=== PATIENT | female | born 1975 | race Caucasian/White ===

== ENCOUNTER → 2019-04-02 | Outpatient (CLI) | payer OTHER | LOC: RAD 09:01 | PROVIDERS: ATTEND Nurse Practitioner Family | DX: Z12.31 Encounter for screening mammogram for malignant neoplasm of breast (principal) | CPT/HCPCS: 77067 ==

== ENCOUNTER → 2020-04-20 | Outpatient (CLI) | payer OTHER ==
--- NOTE | 2020-04-20 14:36 | Diagnostic Imaging Report ---
INDICATION: Routine screening. COMPARISON: 04/02/2019 and 12/27/2017. TECHNIQUE: 2D and 3D bilateral screening mammography was performed with CAD. FINDINGS: Both breasts are heterogeneously dense, limiting the sensitivity of mammography. No mass or malignant appearing microcalcifications are identified. The axillae are unremarkable. IMPRESSION: No mammographic features suspicious for malignancy are identified. ACR BI-RADS Category 1: Negative. Result letter will be mailed to the patient. Note: At least 10% of breast cancer is not imaged by mammography. Dictated by: Dictated on workstation # [id number]
== END ==
LOC: RAD 09:10
PROVIDERS: ATTEND Nurse Practitioner Family
DX: Z12.31 Encounter for screening mammogram for malignant neoplasm of breast (principal)
CPT/HCPCS: 77063; 77067

== ENCOUNTER → 2020-06-01 | Outpatient (CLI) | payer SELFPAY ==
--- NOTE | 2020-06-01 13:38 | Diagnostic Imaging Report ---
EXAMINATION: Magnetic resonance imaging of the right ankle without contrast. DATE: June 01, 2020. COMPARISON: None. HISTORY: 45-year-old female, right ankle pain. Evaluation for Achilles tendinitis. TECHNIQUE: Magnetic Resonance Imaging sequences were performed of the ankle without contrast. [< >] FINDINGS: TENDONS AND LIGAMENTS: The Achilles tendon is unremarkable. There is a complete tear of the tibialis posterior tendon. The tear is occurring approximately 1.6 cm proximal to its insertion. There is a tendon gap of approximately 4.6 cm. There is abnormal fluid in the tibialis posterior tendon sheath. The flexor digitorum longus and flexor hallucis longus tendons are intact. The peroneal tendons - peroneus longus and peroneus brevis - are intact. The anterior extensor tendons - tibialis anterior, extensor hallucis longus and extensor digitorum longus tendons - are intact. The anterior and posterior syndesmotic ligaments are intact. The anterior talofibular, posterior talofibular, calcaneofibular and deltoid ligaments are intact. The plantar fascia is intact. JOINTS: The ankle mortise is intact. There is a moderate anterior subtalar joint effusion. There is a moderate-sized posterior subtalar joint effusion. There is no pronounced arthritis. BONE: The bones all have normal configuration. There is prominent marrow edema in the calcaneus adjacent to the sinus tarsi without identified fracture line or bone destruction. There are subcortical cystic changes in the distal calcaneus adjacent to the sinus tarsi . The talar dome is intact. There is low-level marrow edema in the talus adjacent of the sinus tarsi as well as low-level marrow edema in the distal fibular tip. BURSAE AND SOFT TISSUES: There is loss of normal fat signal in the sinus tarsi. There is medial and lateral subcutaneous edema at the level of the ankle. IMPRESSION: 1. Complete tear of the tibialis posterior tendon occurring approximately 1.6 cm proximal to its attachment site with a tendon gap measuring 4.6 cm. There is abnormal fluid in the tibialis posterior tendon sheath compatible with tenosynovitis. 2. Loss of normal fat signal in the sinus tarsi, consistent with sinus tarsi syndrome. Individual ligaments in the sinus tarsi are difficult to definitively evaluate but are without obvious complete tear. 3. Moderate anterior and posterior subtalar joint effusions without prominent arthritis. 4. Prominent marrow edema in the calcaneus as well as less prominent edema in the talus, which is most likely reactive and related to the sinus tarsi process. 5. No acute fracture. Dictated by: Dictated on workstation # [id number]
== END ==
LOC: RAD 12:23
PROVIDERS: ATTEND Podiatrist Foot & Ankle Surgery
DX: S86.011A Strain of right Achilles tendon, initial encounter (principal); M76.821 Posterior tibial tendinitis, right leg; M76.61 Achilles tendinitis, right leg; M25.471 Effusion, right ankle; X58.XXXA Exposure to other specified factors, initial encounter
CPT/HCPCS: 73721